=== PATIENT | male | born 1995 | race Caucasian/White ===

== ENCOUNTER 2018-11-14 23:30 | Emergency (ER) | payer MEDICAID ==
[~2018-11-14] VITALS: Ht 190.5 cm; Wt 95.3 kg
[2018-11-14 23:35] VITALS: BP_SYST 140
[2018-11-15] MEDS: DIPH-TET-PERTUS Vaccine 0.5 ML VIAL (ADACEL) I.M. ONE (00:48)
[2018-11-15 00:57] VITALS: BP_SYST 140
== END 2018-11-15 00:57 | disposition home or self-care (01) ==
LOC: SED 23:30
DX: S61.211A Laceration without foreign body of left index finger without damage to nail, initial encounter (principal); R03.0 Elevated blood-pressure reading, without diagnosis of hypertension; W26.0XXA Contact with knife, initial encounter; Y93.89 Activity, other specified; Y92.89 Other specified places as the place of occurrence of the external cause; Y99.8 Other external cause status
CPT/HCPCS: 90715; 99283

== ENCOUNTER 2018-11-15 16:14 | Emergency (ER) | payer MEDICAID ==
[~2018-11-15] VITALS: Ht 190.5 cm; Wt 95.3 kg
[2018-11-15 16:39] VITALS: BP_SYST 133
--- NOTE | 2018-11-15 16:43 | NUR ---
Patient to ER bed 1 to gown for evaluation. Side rails up. Report given to Bhumika TAM.
--- NOTE | 2018-11-15 16:50 | NUR ---
RAYSA Cheek at bedside examining patient.
--- NOTE | 2018-11-15 16:50 | NUR ---
patient AOx4 from home with c/o left 4th finger digit laceration opening s/p glue. patient states his finger opened up while he was sleeping. patient has full ROM without pain to digit with less than 3 caprefill. no other complaint or injury at this time.
--- NOTE | 2018-11-15 17:30 | NUR ---
patient resting with girlfriend at bedside.
--- NOTE | 2018-11-15 18:06 | NUR ---
Patient given written and verbal discharge instructions and verbalizes understanding. ER MD discussed with patient the results and treatment provided. Patient in stable condition. ID arm band removed. Rx of Motrin, Keflex given. Patient educated on pain management and to follow up with PMD. Pain Scale 0/10. Opportunity for questions provided and answered. Medication side effect fact sheet provided.
[2018-11-15 18:07] VITALS: BP_SYST 130
== END 2018-11-15 18:07 | disposition home or self-care (01) ==
LOC: SED 16:14
DX: S61.211D Laceration without foreign body of left index finger without damage to nail, subsequent encounter (principal); R03.0 Elevated blood-pressure reading, without diagnosis of hypertension; Z88.1 Allergy status to other antibiotic agents; W26.0XXD Contact with knife, subsequent encounter
CPT/HCPCS: 99283

== ENCOUNTER 2020-07-15 18:55 | Emergency (ER) | payer MEDICAID, SELFPAY ==
[~2020-07-15] VITALS: Ht 190.5 cm; Wt 95.3 kg
[2020-07-15 19:45] VITALS: BP_SYST 149
--- NOTE | 2020-07-15 19:45 | NUR ---
PT TO REMAIN IN ER TENT, NO ER BED CURRENTLY AVAILABLE
--- NOTE | 2020-07-15 19:50 | NUR ---
PT AAO AND AMBULATORY REPORTING CONGESTION, SOB, AND COUGH FOR THE PAST WEEK. PT CURRENTLY DENIES PAIN AND REPORTS THAT HE JUST FINISHED HIS ANBX FROM HAVING BRONCHITIS. PT NOT CURRENTLY IN ANY DISTRESS V/S STABLE.
--- NOTE | 2020-07-15 20:55 | NUR ---
DR. VILLANUEVA AT ER TENT TO EVALUATE PT STATUS
[2020-07-15 21:22] LABS: BASOPHILS % (AUTO) 0.7 % (0.0-2.0); EOSINOPHILS # (AUTO) 0.1 K/uL (0.0-0.4); HEMOGLOBIN 17.8 g/dL (14.0-18.0); LYMPHOCYTES # (AUTO) 1.8 K/uL (1.0-5.5); LYMPHOCYTES % (AUTO) 28.5 % (20.5-51.5); MEAN CORPUSCULAR HEMOGLOBIN 30 pg (27-31); MEAN CORPUSCULAR HGB CONC 35 % (32-36); MEAN CORPUSCULAR VOLUME 86 fL (79.0-98.0); MONOCYTES # (AUTO) 0.6 K/uL (0.0-1.0); MONOCYTES % (AUTO) 8.9 % (1.7-9.3); NEUTROPHILS # (AUTO) 3.9 K/uL (1.8-7.7); NEUTROPHILS % (AUTO) 60.9 % (40.0-70.0); PLATELET COUNT (AUTO) 149 K/uL (130-430); RED BLOOD CELL COUNT(AUTO) 5.93 MIL/uL (4.2-6.2); RED CELL DISTRIBUTION WIDTH 12.8 % (9.0-15.0); WHITE BLOOD COUNT (AUTO) 6.5 K/uL (4.8-10.8)
--- NOTE | 2020-07-15 21:42 | NUR ---
COVID SWAB PERFORMED PT TOLERATED WELL SAMPLE SENT TO LAB AWAITING RESULTS
[2020-07-15 23:05] VITALS: BP_SYST 149
--- NOTE | 2020-07-15 23:05 | NUR ---
Patient given written and verbal discharge instructions and verbalizes understanding. DR. KAY TABARES MD discussed with patient the results and treatment provided. Patient in stable condition. ID arm band removed. Patient educated on pain management and to follow up with PMD. Pain Scale 0/10. Opportunity for questions provided and answered.
== END 2020-07-15 23:05 | disposition home or self-care (01) ==
LOC: SED 18:55
DX: R07.89 Other chest pain (principal); R05 Cough; Z88.1 Allergy status to other antibiotic agents; Z20.828 Contact with and (suspected) exposure to other viral communicable diseases
CPT/HCPCS: 36415; 71045; 83880; 84484; 85025; 85379; 93005; 99285